=== PATIENT | male | born 1990 | race Asian ===

== ENCOUNTER 2020-03-15 14:29 | Emergency (ER) | payer BC, SELFPAY ==
[~2020-03-15] VITALS: Ht 190.5 cm; Wt 115.7 kg
[2020-03-15 14:32] VITALS: BP 122/77; Ht 190.5 cm; Wt 115.7 kg
== END 2020-03-15 15:50 | disposition home or self-care (01) ==
LOC: ED 14:29
DX: R50.9 Fever, unspecified (principal); R05 Cough; Z20.828 Contact with and (suspected) exposure to other viral communicable diseases